=== PATIENT | female | born 1990 | race Caucasian/White ===

== ENCOUNTER 2019-11-02 16:55 | Emergency (ER) | payer OTHER ==
[~2019-11-02] VITALS: Ht 165.1 cm; Wt 70.0 kg
[~2019-11-02 16:55] MED LIST: DOXY100C2 PO; HYDR-523 PO; METR250T PO; METR500T GT; ONDA4TAB21 SL; PARAGARD
[2019-11-02 17:57] VITALS: BP 125/84
== END 2019-11-02 20:29 | disposition left against medical advice (07) ==
LOC: ER 16:55
DX: S61.411A Laceration without foreign body of right hand, initial encounter (principal); Z53.21 Procedure and treatment not carried out due to patient leaving prior to being seen by health care provider; X58.XXXA Exposure to other specified factors, initial encounter; Y93.89 Activity, other specified; Y92.89 Other specified places as the place of occurrence of the external cause; Y99.8 Other external cause status